=== PATIENT | female | born 1985 | race Caucasian/White ===

== ENCOUNTER 2018-03-15 10:42 | Emergency (ER) | payer MEDICAID ==
[~2018-03-15] VITALS: Ht 160 cm; Wt 76.2 kg
[2018-03-15 10:49] VITALS: BP 137/78
--- NOTE | 2018-03-15 10:54 | NUR ---
PT AMBULATES TO BED 7
--- NOTE | 2018-03-15 10:58 | NUR ---
PT BIB SELF C/O LT 4TH FINGER PAIN X YESTERDAY. + CMS, BLEEDING CONTROLLED, 7/10 PAIN SCALE. PT WAS SENT FROM [facility]RGENT THIS MORNING. PT STATES SHE WAS FOLDING UP THE STROLLER/ CRIB AND FINGER GOT CAUGHT IN IT AND FINGERNAIL CAME OFF. PT STATES FINGER MAYBE FRACTURED. HX; DENIES RX; MADDY @ 0700
--- NOTE | 2018-03-15 11:17 | NUR ---
DR MAYNARD EVALUATING PT AT BEDSIDE
[2018-03-15] MEDS ORDERED: KETOROLAC 60 MG/2 ML VIAL IM ONE (11:20)
[2018-03-15 11:51] VITALS: BP 134/76
--- NOTE | 2018-03-15 11:51 | NUR ---
Patient discharged with v/s stable. Written and verbal after care instructions given and explained. Patient alert, oriented and verbalized understanding of instructions. Ambulatory with steady gait. All questions addressed prior to discharge. ID band removed. Patient advised to follow up with PMD. Rx of NORCO 5/325, MOTRIN 800MG given. Patient educated on indication of medication including possible reaction and side effects. Opportunity to ask questions provided and answered.
== END 2018-03-15 11:51 | disposition home or self-care (01) ==
LOC: MED 10:42
DX: S62.635A Displaced fracture of distal phalanx of left ring finger, initial encounter for closed fracture (principal); W22.8XXA Striking against or struck by other objects, initial encounter; Y93.89 Activity, other specified; Y92.89 Other specified places as the place of occurrence of the external cause; Y99.8 Other external cause status
CPT/HCPCS: 29130; 96372; 99283; J1885